=== PATIENT | male | born 1980 | race Caucasian/White ===

== ENCOUNTER 2018-05-10 11:54 | Emergency (ER) | payer SELFPAY ==
[~2018-05-10] VITALS: Ht 182.9 cm; Wt 87.0 kg
[2018-05-10] MEDS ORDERED: KETOROLAC 30MG/ML VIAL IV STA (12:07)
[2018-05-10] MEDS ORDERED: SODIUM CHLORIDE 0.9% 1,000 ML IV ONE (12:07)
[2018-05-10 12:58] LABS: BASOPHILS % 0.5 % (0.0-2.0); EOSINOPHILS % 2.1 % (0.0-5.0); HEMATOCRIT. 39.8 % (42.0-52.0); HEMOGLOBIN. 13.7 g/dL (14.0-18.0); LYMPHOCYTES % 35.4 % (20.0-50.0); MEAN CORPUSCULAR HEMOGLOBIN 29.2 pg (28.0-32.0); MEAN CORPUSCULAR VOLUME 84.8 fL (80.0-94.0); MEAN PLATELET VOLUME 8.6 fl (7.4-10.4); MONOCYTES % 8.8 % (2.0-8.0); NEUTROPHILS % 53.2 % (40.0-76.0); PLATELET 208 x1000/uL (130-400); RED CELL DISTRIBUTION WIDTH 13.7 % (11.6-14.6)
[2018-05-10 13:01] LABS: CHLORIDE 106 mEq/L (98-107)
[2018-05-10 13:04] LABS: ETHANOL BLOOD < 10 mg/dL
[2018-05-10 14:30] VITALS: BP 125/76
== END 2018-05-10 15:02 | disposition home or self-care (01) ==
LOC: ER 12:11
DX: F15.129 Other stimulant abuse with intoxication, unspecified (principal); R07.89 Other chest pain; F17.200 Nicotine dependence, unspecified, uncomplicated
CPT/HCPCS: 36415; 71045; 80048; 83880; 84484; 85025; 93005; 96374; 99285; G0482; J1885; J7030; Z7610